=== PATIENT | female | born 1980 | race Caucasian/White ===

== ENCOUNTER 2017-05-05 06:23 | Emergency (ER) | payer OTHER, SELFPAY ==
[2017-05-05 06:23] VITALS: BP 181/123; PULSE 74; RESP 18; TEMP 36.8; O2SAT 100; BMI 31.9
[2017-05-05] MEDS: Naproxen 250 MG Tablet 500 MG PO (07:15)
[2017-05-05] MEDS: HYDROcodone Bitartrate/Apap 5/325 Tablet PO (07:15)
[2017-05-05] MEDS: Penicillin Vk 250 MG Tablet 500 MG PO (07:16)
--- NOTE | 2017-05-05 07:16 | ED.DCSUM_ITS ---
- ER Visit Summary Date of Service: 05/05/17 Chief Complaint: Dental pain History of Present Illness: The patient is a 36 F who reports that she has pain in her right maxillary first molar that began 2 days ago. Is a constant throbbing pain that is 10 out of 10 at worst a 10 currently. Is worsened by eating. She taken ibuprofen without relief. States that she woke this morning has swelling to the right side of her face. She denies any fever, chills, nausea, or vomiting. Physical Examination: Vitals: Stable. Afebrile. Mouth: No trismus. No edema of the floor of the mouth. Pain with percussion of right maxillary first molar. There are obvious caries on the medial side of the tooth. There is no focal abscess. She does have mild swelling of the right side of her face. General: A&O x 3. NAD. Cardiovascular exam: Regular rate and rhythm, no murmur, rub or gallop. Respiratory exam: Clear to auscultation bilaterally. No wheezes or stridor. Abdominal exam: Soft, nontender, nondistended, normal bowel sounds. No peritoneal signs. Extremity: No clubbing, cyanosis, or edema. Emergency Department Course and Treatment: Patient was treated with naproxen, [place], and penicillin. Treatment Plan: She is instructed to follow-up with her dentist as soon as possible. Her blood pressure was elevated here. Initial pressure was 181/123. Repeat pressure is 154/112. She denies a history of hypertension. She believes that this is secondary to pain. I discussed her the fact that this may play a component but that she needs to get this checked again within a week. Return to the emergency department for any worsening symptoms. Disposition: To home in improved and stable condition. Impression: 1. Dental pain. 2. Hypertension. This note was generated with [employer] dictation software. It may contain incorrect words, spelling, and punctuation that were not noted in review of the chart prior to signing ED Disposition - Plan for ED Patient: Disposition: Home or Assisted Living Chief Complaint: Dental Instructions: ED Tooth Pain Prescriptions: Hydrocodone Bitart/Apap 5-325 [[place] 5/325] 1 - 2 tablet PO Q4H PRN PRN 3 Days # 20 tablet PRN Reason: Pain Naproxen [Naprosyn] 500 mg PO BID PRN #20 tablet Penicillin V Potassium 500 mg PO 4X/DAY #40 tablet Referrals: Dentist,Your [STAFF PHYSICIAN] - As soon as possible
[2017-05-05 07:27] VITALS: BP 154/112
== END 2017-05-05 07:28 | disposition home or self-care (01) ==
LOC: ED 06:51
PROVIDERS: Emergency Provider Emergency Medicine; Family Provider Family Medicine; PCP Family Medicine
DX: K08.89 Other specified disorders of teeth and supporting structures (principal); I10 Essential (primary) hypertension; K02.9 Dental caries, unspecified; E03.9 Hypothyroidism, unspecified; Z72.0 Tobacco use; Z79.899 Other long term (current) drug therapy
CPT/HCPCS: 99283

== ENCOUNTER 2017-07-07 15:54 | Emergency (ER) | payer OTHER, SELFPAY ==
[2017-07-07 15:55] VITALS: BP 157/109; PULSE 78; RESP 18; TEMP 36.2; O2SAT 100; BMI 37.5
--- NOTE | 2017-07-07 16:22 | ED.VISSUMM ---
- ER Visit Summary Date of Service: 07/07/17 Chief Complaint: [Dental pain] History of Present Illness: The patient is a 36 F presents to the emergency department dental pain for 2 weeks. Patient states that she has been trying to hold off going to the dentist because her insurance does not kick in until the of this month. Patient states this morning she woke up the sensation like her tongue was swollen and was having a lot of pain underneath the right side of her tongue. Patient states that she has got some broken molars right upper and lower. Patient denies any fevers. Patient also noted small white lesion to the right upper gingiva that is slightly tender to palpation.] Physical Examination: [HEENT-PERRLA, EOMI. Cranial nerves II through XII grossly intact. TMs clear. Mucous membranes moist. No adenopathy. Patient has broken and carried right upper and lower molars that are tender to palpation however no obvious dental abscess noted. Patient has some faint erythema along the right upper gingiva. Patient has 2 small whitish type plaques measuring approximately 4 mm x 2 mm to the right upper gingiva that are slightly tender. Normal oropharynx. Normal tongue. Patient able to touch her tongue to the roof of her mouth without difficulty. There is no evidence of angioedema. Cardiovascular-regular rate and rhythm without murmur or ectopy Lungs-clear to auscultation, chest wall stable without crepitus or subcu emphysema Abdomen-normoactive bowel sounds, soft, nontender, no rebound or rigidity, no peritoneal signs. Extremities-intact ?4, normal range of motion, normal pulses, atraumatic] Test Results: [None indicated] Emergency Department Course and Treatment: Patient will be started on [place] and clindamycin.] Treatment Plan: [Treat with [place] and clindamycin and advised to follow-up with dentist within the next 3-5 days.] Disposition: [Discharged to home in stable condition] Impression: [Dental pain] This note was generated with [employer] dictation software. It may contain incorrect words, spelling, and punctuation that were not noted in review of the chart prior to signing ED Disposition - Plan for ED Patient: Chief Complaint: Dental Referrals: Nick Templeton MD [Primary Care Provider] -
--- NOTE | 2017-07-07 16:25 | ED.DCSUM_ITS ---
- ER Visit Summary Date of Service: 07/07/17 Chief Complaint: [Dental pain] History of Present Illness: The patient is a 36 F presents to the emergency department dental pain for 2 weeks. Patient states that she has been trying to hold off going to the dentist because her insurance does not kick in until the of this month. Patient states this morning she woke up the sensation like her tongue was swollen and was having a lot of pain underneath the right side of her tongue. Patient states that she has got some broken molars right upper and lower. Patient denies any fevers. Patient also noted small white lesion to the right upper gingiva that is slightly tender to palpation.] Physical Examination: [HEENT-PERRLA, EOMI. Cranial nerves II through XII grossly intact. TMs clear. Mucous membranes moist. No adenopathy. Patient has broken and carried right upper and lower molars that are tender to palpation however no obvious dental abscess noted. Patient has some faint erythema along the right upper gingiva. Patient has 2 small whitish type plaques measuring approximately 4 mm x 2 mm to the right upper gingiva that are slightly tender. Normal oropharynx. Normal tongue. Patient able to touch her tongue to the roof of her mouth without difficulty. There is no evidence of angioedema. Cardiovascular-regular rate and rhythm without murmur or ectopy Lungs-clear to auscultation, chest wall stable without crepitus or subcu emphysema Abdomen-normoactive bowel sounds, soft, nontender, no rebound or rigidity, no peritoneal signs. Extremities-intact ?4, normal range of motion, normal pulses, atraumatic] Test Results: [None indicated] Emergency Department Course and Treatment: Patient will be started on [place] and clindamycin.] Treatment Plan: [Treat with [place] and clindamycin and advised to follow-up with dentist within the next 3-5 days.] Disposition: [Discharged to home in stable condition] Impression: [Dental pain] This note was generated with [employer] dictation software. It may contain incorrect words, spelling, and punctuation that were not noted in review of the chart prior to signing ED Disposition - Plan for ED Patient: Chief Complaint: Dental Referrals: Nick Templeton MD [Primary Care Provider] -
--- NOTE | 2017-07-07 16:26 | DCINST.ED_ITS ---
ED Disposition - Plan for ED Patient: Chief Complaint: Dental Instructions: ED Tooth Pain Prescriptions: Hydrocodone Bitart/Apap 5-325 [[place] 5/325] 1 - 2 tab PO Q4H PRN PRN 5 Days #20 tab PRN Reason: Pain Clindamycin HCl [Cleocin] 300 mg PO Q6H #40 cap Referrals: Nick Templeton MD [Primary Care Provider] - Additional Instructions: see your dentist in 3-5 days
== END 2017-07-07 16:37 | disposition home or self-care (01) ==
LOC: ED 16:34
PROVIDERS: Emergency Provider Emergency Medicine; Family Provider Family Medicine; PCP Family Medicine
DX: K08.89 Other specified disorders of teeth and supporting structures (principal); K02.9 Dental caries, unspecified; E03.9 Hypothyroidism, unspecified; Z72.0 Tobacco use; Z79.899 Other long term (current) drug therapy
CPT/HCPCS: 99282